=== PATIENT | female | born 1955 | race Caucasian/White ===

== ENCOUNTER 2021-08-20 09:35 | Emergency (ER) | payer MEDICARE ==
[~2021-08-20] VITALS: Ht 162.5 cm; Wt 93.4 kg
[~2021-08-20 09:35] MED LIST: ALEVE220 MG PO; CIPRO250 MG PO; DIFLUCAN150 MG PO; EPA/GLA1 SGL PO; MULTIVITAMIN FO1 CAP PO; OSTEO-BI-FLEX 21 TAB PO; ZOFRAN ODT8 MG PO
== END 2021-08-20 11:11 | disposition short-term general hospital (02) ==
LOC: ED 09:35
DX: S01.81XA Laceration without foreign body of other part of head, initial encounter (principal); S49.82XA Other specified injuries of left shoulder and upper arm, initial encounter; Z90.710 Acquired absence of both cervix and uterus; Z79.899 Other long term (current) drug therapy; W01.0XXA Fall on same level from slipping, tripping and stumbling without subsequent striking against object, initial encounter; Y93.01 Activity, walking, marching and hiking; Y92.89 Other specified places as the place of occurrence of the external cause; Y99.9 Unspecified external cause status